=== PATIENT | female | born 2005 | race African-American/Black ===

== ENCOUNTER 2025-03-21 14:45 | Emergency (ER) | payer BC, SELFPAY ==
--- NOTE | ~2025-03-21 | XR_ITS ---
EXAMINATION: XR ankle RT min 3V DATE: 03/21/2025 15:12 INDICATION: Injury. TECHNIQUE: 4 images of the right ankle were obtained. COMPARISON: None. FINDINGS: [ No significant degenerative change.] [ No radiographic evidence for an acute fracture or dislocation.] [ No radiopaque foreign body.] [ No sclerotic or destructive bone lesions.] Soft tissue swelling about the right ankle. Talar dome is unremarkable. IMPRESSION: 1. [ No acute bony abnormality identified.] If symptoms persist or worsen consider a short-term follow-up study or additional imaging for further assessment. Reviewed, dictated and finalized at location Q. IMPRESSION: 1. [ No acute bony abnormality identified.] If symptoms persist or worsen consider a short-term follow-up study or addition al imaging for further assessment.
--- NOTE | 2025-03-21 14:53 | ED.GENADULT ---
HPI - General Adult General Chief complaint: Extremity Injury, Lower Stated complaint: R ankled rolled Time Seen by Provider: 03/21/25 14:50 Source: patient Mode of arrival: ambulatory Limitations: no limitations History of Present Illness HPI narrative: Pt is a 19 y/o female presenting with c/o R. ankle injury. 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 No foot pain. No hx of previous fracture/surgery to the RLE. No paresthesias. No additional complaints. Related Data Home Medications ?Medication ?Instructions ?Recorded ?Confirmed ?Last Taken ?Type No Home Medications 03/21/25 03/21/25 Unknown History Allergies Allergy/AdvReac Type Severity Reaction Status Date / Time No Known Allergies Allergy Verified 03/21/25 15:23 Review of Systems Review of Systems: CONSTITUTIONAL: Denies body aches, fever, chills, or sweats. EYES: Denies visual changes, redness, or discharge. ENT: Denies rhinorrhea, congestion, sore throat, or otalgia. CARDIOVASCULAR: Denies chest pain, palpitations, or edema. RESPIRATORY: Denies cough or dyspnea. GASTROINTESTINAL: Denies abdominal pain, nausea, vomiting, or diarrhea. GENITOURINARY: Denies dysuria or hematuria. SKIN: Denies rash, itching, or wounds. MUSCULOSKELETAL: reports right ankle pain Denies back pain NEUROLOGIC: Denies headache, numbness, tingling, or weakness. PSYCH: Denies depression or anxiety. All systems reviewed & are unremarkable except as noted in HPI and below Exam Narrative: GENERAL: Well-appearing, well-nourished, and in no acute distress. morbidly obese. HEAD: Normocephalic, atraumatic. EYES: EOMI. No redness or drainage. Conjunctivae normal. ENT: Mucous membranes pink and moist. NECK: Normal AROM. Supple CHEST: No respiratory distress. HEART: Regular rate Normal peripheral pulses. EXTREMITIES: Mild edema, TTP to the lateral aspect of the right ankle. Pain with all range of motion of the right ankle. No TTP to right foot. +DNVI +FROM to the RLE SKIN: Warm, dry, no rash. Capillary refill normal. Normal skin turgor. NEURO: No focal deficits. Alert and oriented x3. Gait steady. PSYCH: Normal affect. No signs of depression or anxiety. Course Course Level of Care: Express Care Visit Vital Signs Vital signs: Vital Signs Temperature 97.4 F L 03/21/25 15:03 Pulse Rate 76 03/21/25 15:03 Respiratory Rate 16 03/21/25 15:03 Blood Pressure 133/65 03/21/25 15:03 Pulse Oximetry 100 03/21/25 15:03 Temperature 97.4 F L 03/21/25 15:03 Pulse Rate 76 03/21/25 15:03 Respiratory Rate 16 03/21/25 15:03 Blood Pressure 133/65 03/21/25 15:03 Pulse Oximetry 100 03/21/25 15:03 Procedures Orthopedic Splinting/Casting Injury #1: Splinting/Casting Date: 03/21/25 Splinting/Casting Time: 15:35 Side: right Lower Extremity Injury Location: ankle Lower Extremity Immobilizer: Oj wrap Pre-Procedure Neuro Vascular Exam: normal Post-Procedure Neuro Vascular Exam: normal Medical Decision Making Vital Signs Vital Signs: Vital Signs Temperature 97.4 F L 03/21/25 15:03 Pulse Rate 76 03/21/25 15:03 Respiratory Rate 16 03/21/25 15:03 Blood Pressure 133/65 03/21/25 15:03 Pulse Oximetry 100 03/21/25 15:03 Temperature 97.4 F L 03/21/25 15:03 Pulse Rate 76 03/21/25 15:03 Respiratory Rate 16 03/21/25 15:03 Blood Pressure 133/65 03/21/25 15:03 Pulse Oximetry 100 03/21/25 15:03 Imaging Data Attestation: I personally reviewed and interpreted this imaging study as follows: My impression: [facility] Radiologist's impression: [facility] Discharge Plan Discharge Clinical Impression: Ankle sprain and strain Patient Disposition: Home Condition: Stable Instructions: Ankle Sprain (DC) Additional Instructions: Go straight to ER should your symptoms become worse or should any new symptoms develop Patient Language: [place]i Prescriptions: No Action No Home Medications Follow-up/Referrals: UNKNOWN,DOCTOR [Primary Care Provider] - 03/22/25 Time of Disposition: 15:34
[2025-03-21 15:03] VITALS: BP 133/65; PULSE 76; RESP 16; TEMP 36.3; O2SAT 100
== END 2025-03-21 15:36 | disposition home or self-care (01) ==
PROVIDERS: Emergency Provider Registered Nurse
DX: S93.401A Sprain of unspecified ligament of right ankle, initial encounter (principal); S96.911A Strain of unspecified muscle and tendon at ankle and foot level, right foot, initial encounter; X50.9XXA Other and unspecified overexertion or strenuous movements or postures, initial encounter; Y93.01 Activity, walking, marching and hiking
CPT/HCPCS: 73610; 99203; G0463